=== PATIENT | female | born 1985 | race Caucasian/White ===

== ENCOUNTER 2018-10-08 17:05 | Emergency (ER) | payer OTHER, SELFPAY ==
[2018-10-08 17:12] VITALS: BP 141/82; PULSE 72; RESP 20; TEMP 36.9; O2SAT 100
--- NOTE | 2018-10-08 17:32 | ED.GENADUL_ITS ---
Discharge Plan Disposition Patient Disposition: HOME Discharge Details Chief Complaint: Sorethroat Clinical Impression: Viral tonsillitis Primary Care Provider: Donald Tripathi V ED Provider: Donny Yoo Home Meds and New Rx's Prescriptions: No Action multivitamin [Daily Vitamin] 1 EACH tablet 1 ea PO DAILY RF: 0 Discharge Instructions Instructions: Pharyngitis (ED) Additional Instructions: We will be contacting you with your culture results. Continue with supportive care including ibuprofen 600 mg every 6-8 hours as needed for pain. Referrals: Donald Tripathi V [Primary Care Provider] - 2 weeks HPI General Date/Time Provider Initiated Documentation: 10/08/18 17:13 . HPI Narrative: Patient is a 33-year-old healthy female who presents to the emergency department with sore throat predominantly her right side starting this morning. She denies any fevers. No nausea or vomiting. No cough or other URI symptoms. 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 Related Data Home Medications Medication Instructions Recorded Confirmed multivitamin [Daily Vitamin] 1 ea PO DAILY 06/23/13 10/08/18 Allergies Allergy/AdvReac Type Severity Reaction Status Date / Time amoxicillin Allergy Unknown Unverified 10/08/18 17:15 cefaclor [From Ceclor] Allergy Unknown Unverified 10/08/18 17:15 Penicillins Allergy Unknown Unverified 10/08/18 17:15 General Stated Complaint: Sorethroat VINCE: 4 Review of Systems Constitutional Denies body ache(s), Denies chills, Denies fever(s) and Denies headache(s) ENT Denies headache(s), Denies nasal congestion, Denies sinus pain, Reports sore throat, Denies throat swelling and Denies tongue swelling Neurologic Denies headache(s) Allergic/Immunologic Denies throat swelling and Denies tongue swelling PFSH Family History Mother Heart disease Father No problems noted. Grandfather Diabetes Grandmother Breast cancer Social History Smoking/Tobacco Use Status: Never Alcohol Intake: never Substance use type: does not use Do you feel safe at home: Yes Do you feel safe in your relationship?: Yes Course Vital Signs Temperature 36.9 C 10/08/18 17:12 Pulse 72 10/08/18 17:12 Respiratory Rate 20 10/08/18 17:12 Blood Pressure 141/82 H 10/08/18 17:12 Pulse Oximetry 100 10/08/18 17:12 Temperature 36.9 C 10/08/18 17:12 Temperature Source Temporal Artery Scan 10/08/18 17:12 Pulse 72 10/08/18 17:12 Respiratory Rate 20 10/08/18 17:12 Respiratory Effort Non-Labored 10/08/18 17:12 Blood Pressure 141/82 H 10/08/18 17:12 Blood Pressure Position Sitting 10/08/18 17:12 Pulse Oximetry 100 10/08/18 17:12 Oxygen Delivery Method Room Air 10/08/18 17:12 Oxygen Flow Rate 0 10/08/18 17:12 Pain Level 2 10/08/18 17:12 Lab/Test Results Lab/Test Results: 10/08/18 17:29 Pharynx Streptococcus Screen (RED) - Pending POC- Test(urine) Negative POC Strep Test-[facility](Rapid) Start: 10/08/18 17:26 Freq: .Rapid Strep Test Status: Inactive Protocol: Document 10/08/18 17:29 PRISCILA (Rec: 10/08/18 17:29 PRISCILA [id number]) Strep test-[facility](Rapid)-POC POC-Strep test-[facility] (Rapid) Negative POC-Strep test-[facility] (Rapid) Negative
[2018-10-08 17:43] VITALS: BP 141/82; PULSE 72; RESP 20; TEMP 36.9; O2SAT 100
--- NOTE | 2018-10-08 19:22 | ED.GENADUL_ITS ---
Discharge Plan Disposition Patient Disposition: HOME Discharge Details Chief Complaint: Sorethroat Clinical Impression: Viral tonsillitis Primary Care Provider: Donald Tripathi V ED Provider: Donny Yoo Home Meds and New Rx's Prescriptions: No Action multivitamin [Daily Vitamin] 1 EACH tablet 1 ea PO DAILY RF: 0 Discharge Instructions Instructions: Pharyngitis (ED) Additional Instructions: We will be contacting you with your culture results. Continue with supportive care including ibuprofen 600 mg every 6-8 hours as needed for pain. Referrals: Donald Tripathi V [Primary Care Provider] - 2 weeks Discharge Data Discharge Date/Time-TO BE ENTERED AT DEPARTURE: 10/08/18 17:45 Medical Decision Making This is a nontoxic-appearing 33-year-old female with apparent tonsillitis. Right tonsil quite enlarged. No uvular shift or muffled voice to suggest peritonsillar abscess/ retropharyngeal abscess. She has no neck pain with range of motion. Vitals are otherwise stable. Her strep screen here is negative. We discussed supportive care at home and will follow up with culture result HPI General Date/Time Provider Initiated Documentation: 10/08/18 17:13 . HPI Narrative: Lorna veliz is a 33-year-old female with no significant past medical history who presents to the emergency department with right tonsillar swelling and sore throat. Symptoms have been ongoing since this morning. She denies any fevers or vomiting. No abdominal pain. No other URI symptoms noted. She does work as a nurse at a assisted living facility Related Data Home Medications Medication Instructions Recorded Confirmed multivitamin [Daily Vitamin] 1 ea PO DAILY 06/23/13 10/08/18 Allergies Allergy/AdvReac Type Severity Reaction Status Date / Time amoxicillin Allergy Unknown Unverified 10/08/18 17:15 cefaclor [From Ceclor] Allergy Unknown Unverified 10/08/18 17:15 Penicillins Allergy Unknown Unverified 10/08/18 17:15 General Stated Complaint: Sorethroat VINCE: 4 Review of Systems Constitutional Denies chills, Denies fatigue, Denies fever(s) and Denies night sweats Eyes Denies blurry vision and Denies irritation ENT Denies dental pain, Denies hoarseness, Denies nasal discharge, Denies sinus pain, Denies sinus pressure, Reports sore throat, Denies throat swelling and Denies tongue swelling Cardiovascular Denies dyspnea Respiratory Denies cough and Denies dyspnea Gastrointestinal Denies abdominal pain, Denies nausea and Denies vomiting Musculoskeletal Denies joint swelling Integumentary/Breasts Denies rash Endocrine Denies fatigue Allergic/Immunologic Denies throat swelling and Denies tongue swelling PFSH Family History Mother Heart disease Father No problems noted. Grandfather Diabetes Grandmother Breast cancer Social History Smoking/Tobacco Use Status: Never Alcohol Intake: never Substance use type: does not use Do you feel safe at home: Yes Do you feel safe in your relationship?: Yes Exam Const General: cooperative and healthy appearing Orientation: awake HENMT Head: normal to inspection Ears: hearing grossly normal bilaterally General nose exam: external nose normal Face and sinus: normal facial exam Mouth: oral mucosae normal, tongue normal and salivary ducts normal Throat: uvula midline, abnormal tonsil on the right erythema and hypertrophy, no peritonsillar masses and no uvular edema Eyes General: appearance normal, both eyes and all related structures Neck Neck: normal visual inspection Lymphatic: lymphadenopathy Chest Chest: normal inspection of the chest Resp Effort & Inspection: normal respiratory effort Auscultation: clear to auscultation bilaterally Skin General skin exam: no rashes or lesions noted Course Vital Signs Temperature 36.9 C 10/08/18 17:12 Pulse 72 10/08/18 17:12 Respiratory Rate 20 10/08/18 17:12 Blood Pressure 141/82 H 10/08/18 17:12 Pulse Oximetry 100 10/08/18 17:12 Temperature 36.9 C 10/08/18 17:12 Temperature Source Temporal Artery Scan 10/08/18 17:12 Pulse 72 10/08/18 17:12 Respiratory Rate 20 10/08/18 17:12 Respiratory Effort Non-Labored 10/08/18 17:12 Blood Pressure 141/82 H 10/08/18 17:12 Blood Pressure Position Sitting 10/08/18 17:12 Pulse Oximetry 100 10/08/18 17:12 Oxygen Delivery Method Room Air 10/08/18 17:12 Oxygen Flow Rate 0 10/08/18 17:12 Pain Level 2 10/08/18 17:12 Lab/Test Results Lab/Test Results: 10/08/18 17:20 Pharynx Streptococcus Screen (RED) - Pending POC- Test(urine) Negative POC Strep Test-[facility](Rapid) Start: 10/08/18 17:26 Freq: .Rapid Strep Test Status: Inactive Protocol: Document 10/08/18 17:29 (Rec: 10/08/18 17:29 [email or web address]) Strep test-[facility](Rapid)-POC POC-Strep test-[facility]IT (Rapid) Negative POC Strep Test-[facility](Rapid) Start: 10/08/18 17:31 Freq: .Rapid Strep Test Status: Active Protocol: Document 10/08/18 17:32 J (Rec: 10/08/18 17:32 [email or web address]) Strep test-[facility](Rapid)-POC POC-Strep test-[facility] (Rapid) Negative POC-Strep test-[facility] (Rapid) Negative
== END 2018-10-08 17:45 | disposition home or self-care (01) ==
PROVIDERS: Emergency Provider Physician Assistant; PCP Physician Assistant Medical
DX: J03.90 Acute tonsillitis, unspecified (principal)
CPT/HCPCS: 81025; 87880; 99282; 87081

== ENCOUNTER 2018-10-10 12:04 | Outpatient (CLI) | payer OTHER, SELFPAY ==
[2018-10-10 12:39] LABS: HCT 40.6 % (36.0-46.0); HGB 14.1 g/dL (12.0-15.5); Mean Corp. HGB Concentration 34.7 g/dL (32.0-36.0); Mean Corpuscular Volume 92.1 fL (80-95); Mean Platelet Volume 10.7 fL (8.0-11.0); Platelet Count 201 x1000/uL (130-400); RBC 4.41 m/cumm (4.00-5.20); RBC Distribution Width 13.2 % (11.7-14.6); White Blood Cell Count 13.22 k/cumm (4.4-10.8)
[2018-10-10 12:54] LABS: Mono Screening Negative (Negative)
== END 2018-10-10 12:24 ==
PROVIDERS: PCP Nurse Practitioner Family; Visit Provider Nurse Practitioner Family
DX: J02.9 Acute pharyngitis, unspecified (principal)
CPT/HCPCS: 36415; 85027; 86308

== ENCOUNTER 2018-12-15 12:06 | Outpatient (REF) | payer OTHER, SELFPAY ==
[2018-12-15 13:16] LABS: *AMPHETAMINES SCREEN URINE Negative (Negative); *BARBITURATES SCREEN URINE Negative (Negative); *BENZODIAZEPINES SCREEN URINE Negative (Negative); Cannabinoids THC Negative (Negative); Cocaine Screen,Urine Negative (Negative); METHADONE URINE SCREEN Negative (Negative); OPIATES URINE SCREEN Negative (Negative)
[2018-12-15 13:17] LABS: Tricyclic Antidepressants Negative (Negative)
[2018-12-18 07:35] LABS: Buprenorphine Negative; Norbuprenorphine Negative
== END 2018-12-15 12:26 ==
LOC: LBN 12:06
PROVIDERS: PCP Nurse Practitioner Family; Visit Provider Advanced Practice Midwife
DX: Z34.91 Encounter for supervision of normal pregnancy, unspecified, first trimester (principal)
CPT/HCPCS: 80307; 87086

== ENCOUNTER 2018-12-23 11:39 | Outpatient (CLI) | payer OTHER, SELFPAY ==
[2018-12-23 12:18] LABS: Abs Immature Grans 0.01 k/cumm (0.0-0.09); Absolute Basophil Count 0.02 k/cumm (0.0-0.2); Absolute Eosinophil Count 0.09 k/cumm (0.0-0.7); Absolute Lymphocyte Count 1.29 k/cumm (1.2-3.4); Absolute Monocyte Count 0.53 k/cumm (0.11-0.7); Absolute Neutrophil Count 5.14 k/cumm (1.2-6.7); Basophils % 0.3; Eosinophils % 1.3; HCT 39.9 % (36.0-46.0); HGB 13.9 g/dL (12.0-15.5); Immature Grans % 0.1; Lymphocytes % 18.2; Mean Corp. HGB Concentration 34.8 g/dL (32.0-36.0); Mean Corpuscular Hemoglobin 31.7 pg (27.0-33.0); Mean Corpuscular Volume 91.1 fL (80-95); Mean Platelet Volume 10.4 fL (8.0-11.0); Monocytes % 7.5; Neutrophils % 72.6; Platelet Count 223 x1000/uL (130-400); RBC 4.38 m/cumm (4.00-5.20); RBC Distribution Width 12.8 % (11.7-14.6); White Blood Cell Count 7.08 k/cumm (4.4-10.8)
[2018-12-26 10:55] LABS: Hepatitis B Surface Ag Negative (NEGAT)
[2018-12-26 11:01] LABS: HIV-1/2 Ag & Ab Screen Negative (NEGAT)
[2018-12-26 11:05] LABS: Varicella IgG Antibody Positive
[2018-12-26 11:08] LABS: Hepatitis C Ab w Rflx HCV PCR Negative (NEGAT)
[2018-12-26 12:43] LABS: Rubella IgG Ab (UVM) Positive
[2018-12-27 15:48] LABS: Kit/Specimen SENT
== END 2018-12-23 11:59 ==
PROVIDERS: Advanced Practice Midwife; PCP Nurse Practitioner Family; Visit Provider Advanced Practice Midwife
DX: Z34.91 Encounter for supervision of normal pregnancy, unspecified, first trimester (principal); Z36.89 Encounter for other specified antenatal screening
CPT/HCPCS: 36415; 86787; 86803; 86850; 86900; 86901; 87340; 87389; 85025; 86762

== ENCOUNTER 2019-01-13 16:51 | Outpatient (REF) | payer OTHER, SELFPAY ==
[2019-01-16 13:01] LABS: Chlamydia Result Negative; GC Result Negative; Specimen Description Urine
== END 2019-01-13 17:11 ==
LOC: LBN 16:51
PROVIDERS: PCP Nurse Practitioner Family; Visit Provider Advanced Practice Midwife
DX: Z34.91 Encounter for supervision of normal pregnancy, unspecified, first trimester (principal); Z11.3 Encounter for screening for infections with a predominantly sexual mode of transmission
CPT/HCPCS: 87491; 87591

== ENCOUNTER 2019-02-09 03:04 | Outpatient (CLI) | payer OTHER, SELFPAY ==
--- NOTE | 2019-02-09 07:35 | DI.US_ITS ---
APPROVED REPORT EXAM: Comprehensive 2D, Doppler, and color-flow Echocardiogram Patient Location: Out-Patient It Applications Analyst: Mary Hastings [facility] ([place]) Indications: heart murmur; systolic r01.1 Left Ventricle The left ventricle is normal. Left ventricular systolic function is normal. The posterior wall thickn ess is normal. The septum is normal. There is normal LV segmental wall motion. The left ventricular d iastolic function is normal. LVEF is 65-70%. Right Ventricle The right ventricle is normal size. The right ventricular systolic function is normal. Atria The left atrium is normal. The right atrium size is normal. Aortic Valve The aortic valve is normal in structure. There is no aortic valvular stenosis. No aortic regurgitatio n is present. Mitral Valve The mitral valve is normal in structure. There is no mitral valve regurgitation noted. Tricuspid Valve The tricuspid valve is normal in structure. Mild tricuspid regurgitation. TR max equals 2.66 m/s. TR peak gradient equals 28.2 mmHG Pulmonic Valve The pulmonary valve is normal in structure. There is no pulmonic valvular regurgitation. Great Vessels The aortic root is normal in size. The ascending aorta size is normal. The IVC is normal in size and collapses >50% with inspiration. Pericardium There is no pericardial effusion. 2D Dimensions IVSd 0.7 cm F: 0.6-1.0 PWd 0.8 cm F: 0.6 - 1.0 LVDd 4.6 cm F: 3.9 - 5.3 LVDs 3.0 cm F: 2.2 - 3.5 Aortic Root 2.4 cm F: 2.7 - 3.3 Left Atrium 2.9 cm F: 2.7 - 3.8 LVOT 1.9 cm (M/F) 1.5-2.5 Ascending Aorta 2.4 cm F: 2.3 - 3.1 LVEF (Fu's) 69.5 % F: 54 - 74 LV Volume Index 48.4 mL/m2 F: 29 - 61 FS 34.2 % LV Diastology E/A Ratio 2.3 MED E' 0.1 (<0.07 m/s) LV E/e MED 7.1 (>14) LAT E' 0.2 (<0.1 m/s) LV E/e LAT 4.6 (>14) Aortic Valve LVOT Peak Marino. 1.4 m/s LVOT Peak Gr. 7.5 mmHg LVOT Mean Gr. 4.5 mmHg LVOT VTI 0.3 m AO VTI 0.4 (0.18-0.25 m) MIASHA (VTI) 1.1 (2.5-4.5 cm2) Mitral Valve MV A Velocity 0.4 (0.4-1.3 m/s) E/A Ratio 2.3 MV Decel. Time 198.7 (160-240 msec) MV PHT 57.6 msec MVA PHT 3.8 cm2 Tricuspid Valve TR P. Velocity 2.6 m/s TR P. Gradient 27.4 mmHg Conclusion Left Ventricle : The left ventricle is normal. The posterior wall thickness is normal. The septum is normal. The left ventricular diastolic function is normal. Left ventricular systolic function is norm al. There is normal LV segmental wall motion. LVEF is 65-70%. Right Ventricle : The right ventricular systolic function is normal. The right ventricle is normal si ze. Atria : The left and right atrium arenormal. Aortic Valve : The aortic valve is normal in structure. No aortic regurgitation is present. There is no aortic valvular stenosis. Mitral Valve : The mitral valve is normal in structure. There is no mitral valve regurgitation noted. Tricuspid Valve : The tricuspid valve is normal in structure. Mild tricuspid regurgitation. TR max e quals 2.66 m/s. TR peak gradient equals 28.2 mmHG Pulmonic Valve : The pulmonary valve is normal in structure. There is no pulmonic valvular regurgitat ion. Great Vessels : The aortic root is normal in size. Pericardium : There is no pericardial effusion. Great Vessels : The IVC is normal in size and collapses >50% with inspiration. There is no prior study available for comparison
== END 2019-02-09 03:24 ==
PROVIDERS: PCP Nurse Practitioner Family; Visit Provider Nurse Practitioner Family
DX: R01.1 Cardiac murmur, unspecified (principal); I36.1 Nonrheumatic tricuspid (valve) insufficiency
CPT/HCPCS: 93306

== ENCOUNTER 2019-02-24 02:11 | Outpatient (CLI) | payer BC, SELFPAY ==
--- NOTE | 2019-02-24 12:43 | DI.US_ITS ---
EXAM: US OB 2-3 TRIMESTER CLINICAL HISTORY: anatomy survey, 18 wks Z34.90 SUPERVISION NORMAL TECHNIQUE: Ultrasound performed using standard protocol. COMPARISON: No exams were available for comparison FINDINGS: The fetus is in cephalic position. The placenta is anterior. The biometric measurements correspond to 19 weeks 4 days and an EDC of July,. No abnormalities are seen. The amniotic fluid appears visually normal. IMPRESSION: survey is within normal limits.
== END 2019-02-24 02:31 ==
PROVIDERS: PCP Nurse Practitioner Family; Visit Provider Advanced Practice Midwife
DX: Z34.92 Encounter for supervision of normal pregnancy, unspecified, second trimester (principal)
CPT/HCPCS: 76805

== ENCOUNTER 2019-04-24 13:21 | Outpatient (CLI) | payer BC, SELFPAY ==
[2019-04-24 13:32] LABS: HCT 34.7 % (36.0-46.0); HGB 11.9 g/dL (12.0-15.5); Mean Corp. HGB Concentration 34.3 g/dL (32.0-36.0); Mean Corpuscular Hemoglobin 31.9 pg (27.0-33.0); Mean Platelet Volume 10.7 fL (8.0-11.0); Platelet Count 164 x1000/uL (130-400); RBC 3.73 m/cumm (4.00-5.20); White Blood Cell Count 8.31 k/cumm (4.4-10.8)
[2019-04-24 13:38] LABS: Glucose,1 Hr (Glucola) 99 mg/dL (80-140)
== END 2019-04-24 13:41 ==
PROVIDERS: PCP Nurse Practitioner Family; Visit Provider Advanced Practice Midwife
DX: Z34.92 Encounter for supervision of normal pregnancy, unspecified, second trimester (principal)
CPT/HCPCS: 36415; 82950; 85027

== ENCOUNTER 2019-05-23 01:32 | Outpatient (CLI) | payer BC, SELFPAY ==
--- NOTE | 2019-05-23 10:38 | DI.US_ITS ---
APPROVED REPORT EXAM: Comprehensive 2D, Doppler, and color-flow Echocardiogram Patient Location: Out-Patient Hat Body Inspector: Mary Hastings [facility] ([place]) Indications: heart murmur systolic r01.1 repear echo for heart murmur in to be done in 3rd trimester. fax to [facility] Conclusion Left Ventricle : The left ventricle is normal size. The left ventricular systolic function is normal. The left ventricular ejection fraction is within the normal range. There is normal left ventricular wall thickness. There is normal LV segmental wall motion. The left ventricular diastolic function is normal. LVEF is estimated to 60-65%. Right Ventricle : The right ventricle is normal size. The right ventricular systolic function appears normal. Atria : The left atrium size is normal. The right atrium size is normal. Aortic Valve : Aortic valve is trileaflet. No aortic regurgitation is present. There is no aortic ellen vular stenosis. Mitral Valve : Mitral valve leaflets are mildly thickened. Trace mitral regurgitation. No evidence of mitral valve stenosis. Tricuspid Valve : The tricuspid valve is normal in structure. Mild tricuspid regurgitation. Great Vessels : The IVC is dilated, but collapses >50% with inspiration. Estimated RVSP is 20-28 mmH g. Compared to prior echocardiogram and there is no significant change. Wall motion Left Ventricle The left ventricle is normal size. The left ventricular systolic function is normal. The left ventric ular ejection fraction is within the normal range. There is normal left ventricular wall thickness. T here is normal LV segmental wall motion. The left ventricular diastolic function is normal. LVEF is e stimated to 60-65%. Right Ventricle The right ventricle is normal size. The right ventricular systolic function appears normal. Atria The left atrium size is normal. The right atrium size is normal. Aortic Valve Aortic valve is trileaflet. There is no aortic valvular stenosis. No aortic regurgitation is present. Mitral Valve Mitral valve leaflets are mildly thickened. No evidence of mitral valve stenosis. Trace mitral regurg itation. Tricuspid Valve The tricuspid valve is normal in structure. Mild tricuspid regurgitation. Pulmonic Valve Trace pulmonic regurgitation. Great Vessels The aortic root is normal in size. The IVC is dilated, but collapses >50% with inspiration. Estimated RVSP is 20-28 mmHg. Pericardium There is no pericardial effusion. 2D Dimensions IVSd 0.95 cm F: 0.6-1.0 LV EDV A2C 73.30 mL PWd 0.95 cm F: 0.6 - 1.0 LV EDV A4C 75.30 mL LVDd 4.70 cm F: 3.8 - 5.2 LA Volume Index A2C 23.34 mL/m2 LVDs 3.10 cm F: 2.2 - 3.5 LA Volume Index A4C 28.75 mL/m2 Aortic Root 2.50 cm F: 2.7 - 3.3 LA Volume Index Biplane 26.24 mL/m2 RA Area A4C 15.13 cm2 LA Area A4C 17.09 cm2 LVOT 1.85 cm (M/F) 1.5-2.5 LA Area A2C 15.21 cm2 Ascending Aorta 2.53 cm F: 2.3 - 3.1 EF AP4 57.77 % LVEF (Teich) 62.83 % EF AP2 65.08 % LVEF (Fu's) 60.77 % F: 54 - 74 EF BP 60.77 % LV Volume 59.38 mL F: 46 - 106 IVC 2.56 cm LV Volume Index 33.54 mL/m2 F: 29 - 61 FS 33.95 % LV Diastology E/A Ratio 1.9 MED E' 0.15 (>0.07 m/s) LV E/e MED 7.80 (<14) LAT E' 0.18 (>0.1 m/s) LV E/e LAT 6.35 (<14) Pulm Vein s 0.61 m/s PV S/D Ratio 0.84 Pulm Vein d 0.73 m/s Pulm Vein a 0.50 m/s A-A Duration 162.99 msec Aortic Valve LVOT Area 2.81 cm2 LVOT Vmax 1.23 m/s LVOT Mean Marino. 0.90 m/s LVOT Peak Gr. 6.0 mmHg LVOT Mean Gr. 3.5 mmHg AoV Area/ BSA (Vmax) 1.05 cm2/m2 LVOT VTI 0.233 m AoV Vmax 1.85 (0.5-1.3 m/s) MAISHA Mean Marino. Index 1.14 cm2/m2 AoV Mean Marino. 1.25 m/s AoV Peak Grad 13.6 mmHg AoV Mean Grad 7.0 (<5 mmHg) AoV VTI 0.351 (0.18-0.25 m) AoV Area VTI 2.01 (2.5-4.5 cm2) AoV Area/ BSA (VTI) 1.14 cm/m2 Mitral Valve MV E Max Marino. 1.15 (0.4-1.3 m/s) MV A Velocity 0.60 (0.4-1.3 m/s) E/A Ratio 1.77 MV Decel. Time 178.35 (160-240 msec) MV PHT 51.73 msec MVA PHT 4.25 cm2 Pulmonary Valve PV Peak Velocity 1.23 (0.5-1.5 m/s) RVOT Peak Gr. 4.25 mmHg RVOT Peak Marino. 1.03 m/s RVOT Mean Gr. 2.15 mmHg RVOT VTI 0.20 m Tricuspid Valve TR P. Velocity 2.22 m/s TV Regurg Vmax 2.22 m/s RAP Estimate 8.00 mmHg RVSP 27.80 mmHg TR P. Gradient 19.75 mmHg
== END 2019-05-23 01:52 ==
PROVIDERS: PCP Nurse Practitioner Family; Visit Provider Nurse Practitioner Family
DX: R01.1 Cardiac murmur, unspecified (principal); O99.413 Diseases of the circulatory system complicating pregnancy, third trimester; I34.8 Other nonrheumatic mitral valve disorders
CPT/HCPCS: 93306

== ENCOUNTER 2019-06-26 16:05 | Outpatient (REF) | payer BC, SELFPAY | END 2019-06-26 16:25 | LOC: LBN 16:05 | PROVIDERS: PCP Nurse Practitioner Family; Visit Provider Advanced Practice Midwife | DX: Z34.93 Encounter for supervision of normal pregnancy, unspecified, third trimester (principal); Z36.85 Encounter for antenatal screening for Streptococcus B | CPT/HCPCS: 87081 ==

== ENCOUNTER 2019-07-10 14:47 | Outpatient (CLI) | payer BC, SELFPAY ==
[2019-07-10 15:29] LABS: HGB 13.6 g/dL (12.0-15.5); Mean Corp. HGB Concentration 34.9 g/dL (32.0-36.0); Mean Corpuscular Hemoglobin 32.2 pg (27.0-33.0); Mean Corpuscular Volume 92.4 fL (80-95); Platelet Count 167 x1000/uL (130-400); RBC 4.22 m/cumm (4.00-5.20); RBC Distribution Width 13.2 % (11.7-14.6); White Blood Cell Count 8.63 k/cumm (4.4-10.8)
[2019-07-10 16:12] LABS: COMMENT (LAB VIEW ONLY) 55.18 mg/dL; PROTEIN 8.1 mg/dL; Prot/Crea Ur Ratio 0.14
[2019-07-10 16:21] LABS: ALT 21 U/L (14-59); AST 20 U/L (15-37); Albumin 3.1 g/dL (3.4-5.0); Alkaline Phosphatase 200 U/L (46-116); Anion Gap 9.9 mmol/L (3-11); BUN 10 mg/dL (7-18); Bilirubin, Total 0.4 mg/dL (0.2-1.0); CO2 25.1 mmol/L (21.0-32.0); CREATININE 0.57 mg/dL (0.55-1.02); Calcium 8.6 mg/dL (8.5-10.1); Chloride 102 mmol/L (98-107); Glucose 87 mg/dL (74-106); Potassium 4.2 mmol/L (3.5-5.1); Sodium 137 mmol/L (136-145); Total Protein 6.5 g/dL (6.4-8.2); Uric Acid 2.9 mg/dL (2.6-6.0)
== END 2019-07-10 15:07 ==
PROVIDERS: PCP Nurse Practitioner Family; Visit Provider Advanced Practice Midwife
DX: O14.93 Unspecified pre-eclampsia, third trimester (principal)
CPT/HCPCS: 36415; 80053; 85027; 82565; 84156; 84550

== ENCOUNTER 2019-07-14 17:22 | Inpatient (IN) | payer BC, SELFPAY ==
[2019-07-14 20:52] LABS: HCT 37.2 % (36.0-46.0); HGB 13.2 g/dL (12.0-15.5); Mean Corp. HGB Concentration 35.5 g/dL (32.0-36.0); Mean Corpuscular Hemoglobin 32.1 pg (27.0-33.0); Mean Corpuscular Volume 90.5 fL (80-95); Mean Platelet Volume 12.1 fL (8.0-11.0); Platelet Count 156 x1000/uL (130-400); RBC 4.11 m/cumm (4.00-5.20); RBC Distribution Width 12.8 % (11.7-14.6); White Blood Cell Count 15.04 k/cumm (4.4-10.8)
[2019-07-14] MEDS: Oxytocin 10 UNITS/ML VIAL IM (23:40)
[2019-07-15] MEDS: Ibuprofen 600 MG TAB PO ×3 (00:45→22:26)
[2019-07-15] MEDS: Hamamelis Leaf/Glycerin 100 EACH BOX PR (00:46)
[2019-07-15] MEDS: Acetaminophen 325 MG TAB 650 MG PO ×2 (08:20→22:25)
[2019-07-16 07:04] LABS: HCT 34.8 % (36.0-46.0); HGB 12.1 g/dL (12.0-15.5); Mean Corp. HGB Concentration 34.8 g/dL (32.0-36.0); Mean Corpuscular Hemoglobin 32.3 pg (27.0-33.0); Mean Corpuscular Volume 92.8 fL (80-95); Mean Platelet Volume 12.1 fL (8.0-11.0); Platelet Count 154 x1000/uL (130-400); RBC 3.75 m/cumm (4.00-5.20); RBC Distribution Width 13.5 % (11.7-14.6); White Blood Cell Count 11.81 k/cumm (4.4-10.8)
[2019-07-16] MEDS: Acetaminophen 325 MG TAB 650 MG PO ×2 (09:23→14:45)
[2019-07-16] MEDS: Ibuprofen 600 MG TAB PO ×2 (09:23→14:45)
== END 2019-07-16 15:45 | disposition home or self-care (01) | DRG 807 ==
PROVIDERS: Admitting Provider Advanced Practice Midwife; PCP Nurse Practitioner Family; Visit Provider Advanced Practice Midwife
DX: O77.0 Labor and delivery complicated by meconium in amniotic fluid (principal); Z37.0 Single live birth; Z3A.39 39 weeks gestation of pregnancy; O70.1 Second degree perineal laceration during delivery; O76 Abnormality in fetal heart rate and rhythm complicating labor and delivery; O92.79 Other disorders of lactation
CPT/HCPCS: 36415; 85027; 86850; 86900; 86901; J2590

== ENCOUNTER 2019-08-30 16:28 | Outpatient (REF) | payer BC, SELFPAY ==
--- NOTE | 2019-08-30 14:00 | PAPFT_PTH ---
PATIENT: Karla Li LOC: [facility] U#:[id number] AGE/SX: 34/F ROOM: RE08/30/[address]: Lisa Olmstead : 1985 BED: DIS: 08/30/2019 SPEC #: [id number] RECD: 08/30/19 17:18 STATUS: CARISA REQ #: [id number] GARRY: 08/30/19 14:[address]: Lisa Olmstead DEPT: [facility] Cytology RECD BY: Marlon Castro ENTERED: 08/30/19 17:19 SP TYPE: PAPFT OTHR DR: Shraddha Alejandre Tissues: 1 - CX/ENDOCX FOR PAP SMEARS Procedures: PAP THIN PREP/[facility] Screening HPV DNA PROBE Comments: [id number]
== END 2019-08-30 16:48 ==
LOC: LBN 16:28
PROVIDERS: PCP Nurse Practitioner Family; Visit Provider Advanced Practice Midwife
DX: Z12.4 Encounter for screening for malignant neoplasm of cervix (principal); Z11.51 Encounter for screening for human papillomavirus (HPV)
CPT/HCPCS: 88142; 87624

== ENCOUNTER 2019-09-05 15:15 | Outpatient (CLI) | payer BC, SELFPAY ==
[2019-09-05 21:03] LABS: FREE T4 0.78 ng/dL (0.76-1.46); TSH 1.47 uIU/mL (0.36-3.74)
== END 2019-09-05 15:35 ==
LOC: LBO 15:15 → LBN 15:58
PROVIDERS: PCP Nurse Practitioner Family; Visit Provider Advanced Practice Midwife
DX: I49.9 Cardiac arrhythmia, unspecified (principal)
CPT/HCPCS: 84439; 84443; 84481

== ENCOUNTER 2022-08-20 01:37 | Outpatient (CLI) | payer OTHER, SELFPAY ==
[2022-08-20 11:33] LABS: Anion Gap 6.7 mmol/L (3-11); BUN 10 mg/dL (7-18); CO2 29.3 mmol/L (21.0-32.0); CREATININE 0.8 mg/dL (0.55-1.02); Calcium 9.1 mg/dL (8.5-10.1); Calculated LDL 97 mg/dL (<100); Chloride 103 mmol/L (98-107); Cholesterol 168 mg/dL (<200); Estimated GFR 97.87 (mL/min/1.73m2); Glucose 81 mg/dL (74-106); HDL Cholesterol 65 mg/dL (40-60); Potassium 3.8 mmol/L (3.5-5.1); Sodium 139 mmol/L (136-145); Triglyceride 31 mg/dL (<150)
== END 2022-08-20 01:38 | disposition home or self-care (01) ==
PROVIDERS: PCP Nurse Practitioner Adult Health; Visit Provider Nurse Practitioner Adult Health
DX: R00.2 Palpitations (principal); Z13.1 Encounter for screening for diabetes mellitus; Z13.220 Encounter for screening for lipoid disorders
CPT/HCPCS: 36415; 80048; 80061; 84443

== ENCOUNTER 2024-09-08 12:40 | Outpatient (REF) | payer OTHER, SELFPAY ==
--- NOTE | 2024-09-08 15:30 | PAPFT_PTH ---
PATIENT: Karla Li LOC: [facility] U#:[id number] AGE/SX: 39/F ROOM: RE09/08/[address]: Lilliana Walker CNM : 1985 BED: DIS: 09/08/2024 SPEC #: [id number] RECD: 09/11/24 17:42 STATUS: CARISA REFarheen #: [id number] GARRY: 09/08/24 15:[address]: Lilliana Walker DEPT: [facility] Cytology RECD BY: Mela Pitts ENTERED: 09/11/24 17:42 SP TYPE: PAPFT OTHR DR: Tatiana Acosta APRN Tissues: 1 - CX/ENDOCX FOR PAP SMEARS Procedures: PAP THIN PREP/[facility] Screening HPV DNA PROBE Comments: [id number] (HPV 16 & 18/45)
== END 2024-09-08 12:41 | disposition home or self-care (01) ==
LOC: LBN 12:40
PROVIDERS: PCP Nurse Practitioner Adult Health; Visit Provider Advanced Practice Midwife
DX: Z11.51 Encounter for screening for human papillomavirus (HPV) (principal); Z01.419 Encounter for gynecological examination (general) (routine) without abnormal findings; R87.622 Low grade squamous intraepithelial lesion on cytologic smear of vagina (LGSIL)
CPT/HCPCS: 88142; 87624

== ENCOUNTER 2024-12-06 07:23 | Outpatient (CLI) | payer OTHER, SELFPAY ==
[2024-12-06 08:54] LABS: HCT 37.9 % (36.0-46.0); HGB 13.0 g/dL (11.2-15.7); MCH 31.0 pg (27.0-33.0); MCHC 34.3 % (32.0-36.0); MCV 90 fL (80-95); MPV 10.7 fL (8.0-11.0); Platelet Count 182 10^3/uL (130-400); RBC 4.20 10^6/uL (3.93-5.22); RDW 11.9 % (11.7-14.6); RDW-SD 39.7 fL; WBC 4.84 10^3/uL (4.4-10.8)
[2024-12-06 09:40] LABS: ALT 23 U/L (14-59); AST 16 U/L (15-37); Albumin 3.9 g/dL (3.4-5.0); Alkaline Phosphatase 41 U/L (46-116); Anion Gap 5.1 mmol/L (3-11); BUN 11 mg/dL (7-18); Bilirubin, Total 0.6 mg/dL (0.2-1.0); CO2 27.9 mmol/L (21.0-32.0); Calcium 8.8 mg/dL (8.5-10.1); Calculated LDL 69 mg/dL (<100); Chloride 104 mmol/L (98-107); Cholesterol 136 mg/dL (<200); Estimated GFR 117.75 (mL/min/1.73m2); Glucose 84 mg/dL (74-106); HDL Cholesterol 60 mg/dL (>or=50); Potassium 3.8 mmol/L (3.5-5.1); Sodium 137 mmol/L (136-145); TSH (W/Ref FT4) 1.57 uIU/mL (0.36-3.74); Total Protein 7.2 g/dL (6.4-8.2); Triglyceride 38 mg/dL (<150)
== END 2024-12-06 07:24 | disposition home or self-care (01) ==
PROVIDERS: PCP Nurse Practitioner Adult Health; Visit Provider Nurse Practitioner Adult Health
DX: F41.9 Anxiety disorder, unspecified (principal); G44.209 Tension-type headache, unspecified, not intractable; R03.0 Elevated blood-pressure reading, without diagnosis of hypertension
CPT/HCPCS: 36415; 80053; 80061; 85027; 84443

== ENCOUNTER 2024-12-22 15:10 | Outpatient (CLI) | payer OTHER, SELFPAY ==
--- NOTE | 2024-12-22 06:45 | DI.MRI_ITS ---
Exam(s) MR BRAIN WO EXAM: MR BRAIN WO CLINICAL HISTORY: NEW ONSET HEADACHE, GETTING WORSE,R51.9. TECHNIQUE: Multiplanar multisequence MRI of the brain was performed. CONTRAST MATERIAL: IV Contrast: ML of Dotarem contrast administered. COMPARISON: No exams were available for comparison FINDINGS: VENTRICLES AND EXTRA AXIAL SPACES: Normal in size and morphology for the patient's age. HEMORRHAGE: None. CEREBRAL PARENCHYMA: No focus of restricted diffusion to suggest acute infarct. No space-occupying lesion identified. BRAINSTEM/CEREBELLUM: Normal. CALVARIUM: Normal. ENHANCEMENT: No suspicious enhancement identified. VISUALIZED PARANASAL SINUSES/MASTOIDS: Opacification of the right sphenoid sinus. Mucosal thickening of a posterior right ethmoid sinus. The sinuses are otherwise clear. Orbits: Unremarkable. Pituitary: Not enlarged. Vasculature: Normal flow voids. IMPRESSION: Right sphenoid sinus opacification. Mucosal thickening of right ethmoid sinus. No abnormality is identified in the brain. DATA REPOSITORY:
== END 2024-12-22 15:30 ==
PROVIDERS: PCP Nurse Practitioner Adult Health; Visit Provider Nurse Practitioner Adult Health
DX: J32.9 Chronic sinusitis, unspecified (principal)
CPT/HCPCS: 70551